=== PATIENT | male | born 1980 | race Caucasian/White ===

== ENCOUNTER 2020-10-17 10:15 | Emergency (ER) | payer SELFPAY ==
[2020-10-17] MEDS ORDERED: XYLOCAINE 1% HCL 20 ML MDV IJ ONE (10:16)
--- NOTE | 2020-10-17 10:17 | ERPHSYRPT ---
- History of Present Illness Time Seen by Provider: 10/17/20 10:17 Source: patient Exam Limitations: no limitations Physician History: This is a 40-year-old white male who is allergic to codeine but cannot take hydrocodone and presents with right cheek swelling and tenderness. It started approximately 4 days ago and has worsened. Patient has had a low-grade fever. Patient denies sore throat. Patient denies cough. Patient denies headache. He has no myalgias or arthralgias. He said no nausea vomiting or diarrhea. He does have some ear pain as well on the right side. Patient states that he has had this before in the past but does not recall what the call that. He was given antibiotics. Other times he has had the area opened and drained on its own. Patient recently moved here from out of town and does not have a local doctor. Timing/Duration: gradual onset, days (4) Severity: moderate ENT Location: facial (Right preauricular area) Prearrival Treatment: over the counter meds Associated Symptoms: ear pain (R), facial pain/swelling (Right preauricular area), swollen glands (Right preauricular and posterior auricular as well as right submandibular) Allergies/Adverse Reactions: codeine Allergy (Verified 10/17/20 10:30) hives Home Medications: Divalproex Sodium [Depakote ER] 250 mg PO BID 10/17/20 [History] Travel Risk - International Travel Have you traveled outside of the country in past 3 weeks: No - Coronavirus Screening Are you exhibiting any of the following symptoms?: No Close contact with a COVID-19 positive Pt in past 14-21 Days: No - Review of Systems Constitutional: Fever Eyes: No Symptoms Ears, Nose, & Throat: Ear Pain (Right), Other (Right preauricular region) Respiratory: No Symptoms Cardiac: No Symptoms Abdominal/Gastrointestinal: No Symptoms Genitourinary Symptoms: No Symptoms Musculoskeletal: No Symptoms Skin: No Symptoms Neurological: No Symptoms Psychological: No Symptoms Endocrine: No Symptoms Hematologic/Lymphatic: No Symptoms Immunological/Allergic: No Symptoms All Other Systems: Reviewed and Negative - Past Medical History Pertinent Past Medical History: Yes - Past Surgical History Past Surgical History: Yes - Nursing Vital Signs Nursing Vital Signs: Initial Vital Signs Temperature 99.3 F 10/17/20 10:20 Pulse Rate 92 H 10/17/20 10:20 Respiratory Rate 16 10/17/20 10:20 Blood Pressure 127/83 10/17/20 10:20 O2 Sat by Pulse Oximetry 98 10/17/20 10:20 Pain Scale Pain Intensity 6 - Physical Exam General Appearance: no apparent distress, alert, anxiety Eye Exam: bilateral eye: normal inspection, PERRL, EOMI Ear Exam: right ear: other (Tender preauricular and posterior ocular regions. There is swelling present as well. I do not see redness or cellulitis present. I do not see folliculitis), bilateral ear: auricle normal, canal normal, TM normal Nasal Exam: normal inspection Throat Exam: normal, pharynx normal Neck Exam: normal inspection, non-tender, supple Cardiovascular/Respiratory Exam: chest non-tender Abdominal Exam: non-tender Neurologic Exam: alert, oriented x 3, cooperative, water mechanic II-XII nml as tested, normal mood/affect, nml cerebellar function, nml station & gait, sensation nml Skin Exam: normal color, warm, dry SpO2 Interpretation: normal O2 Delivery: Room Air - Course Nursing assessment & vital signs reviewed: Yes Ordered Tests: Medication Summary Discontinued Medications Generic Name Dose Route Start Last Admin Trade Name Benyq PRN Reason Stop Dose Admin Ceftriaxone Sodium 1,000 mg 10/17/20 10:27 Rocephin 1000 Mg Inj IM 10/17/20 10:28 STAT ONE Ceftriaxone Sodium Confirm 10/17/20 10:31 Rocephin 1000 Mg Inj Administered 10/17/20 10:32 Dose 1,000 mg .ROUTE .STK-MED ONE - Progress Progress: unchanged Counseled pt/family regarding: diagnosis, need for follow-up - Departure Departure Disposition: Home Clinical Impression: Parotitis, acute Condition: Stable Critical Care Time: No Additional Instructions: Take medication as prescribed. Follow-up with the ENT specialist that we made arrangements for you to follow-up with. Add ibuprofen for pain control and fever control. Prescriptions: Amoxicillin/Potassium Clav [Augmentin 500-125 Tablet] 1 each PO TID 7 Days #21 tablet
[2020-10-17] MEDS ORDERED: Rocephin 1000 MG INJ IM ONE (10:27)
[2020-10-17] MEDS ORDERED: Rocephin 1000 MG INJ ONE (10:31)
[2020-10-17 11:10] VITALS: BP 106/74; PULSE 84; O2SAT 96
== END 2020-10-17 11:10 | disposition home or self-care (01) ==
LOC: ED 10:15
DX: K11.21 Acute sialoadenitis (principal)
CPT/HCPCS: 96372; 99283; J0696

== ENCOUNTER 2020-11-29 12:31 | Emergency (ER) | payer SELFPAY ==
[2020-11-29] MEDS ORDERED: MORPHINE SULFATE 4 MG INJ IV ONE (12:44)
[2020-11-29] MEDS ORDERED: Zofran 4 MG/2 ML VIAL IV ONE (12:44)
[2020-11-29] MEDS ORDERED: BABY ASPIRIN 81 MG CHEW PO ONE (12:44)
[2020-11-29] MEDS ORDERED: PROTONIX 40 MG IV IV ONE ×2 (12:45→12:50)
[2020-11-29] MEDS ORDERED: GI COCKTAIL 45 ML (Maalox/Lidocaine) PO ONE (12:46)
[2020-11-29] MEDS ORDERED: Zofran 4 MG/2 ML VIAL ONE (12:50)
[2020-11-29] MEDS ORDERED: BABY ASPIRIN 81 MG CHEW ONE (12:50)
[2020-11-29] MEDS ORDERED: MORPHINE SULFATE 4 MG INJ ONE (12:51)
[2020-11-29] MEDS ORDERED: MAALOX ES 30 ML UNIT DOSE ONE (12:52)
[2020-11-29] MEDS ORDERED: XYLOCAINE HCl Viscous ONE (12:52)
--- NOTE | 2020-11-29 13:00 | ERPHSYRPT ---
- History of Present Illness Time Seen by Provider: 11/29/20 12:33 Historian: patient Exam Limitations: no limitations Patient Subjective Stated Complaint: Patient stated he woke up this morning with chest pain. States pain is 8/10 with heavy pressure. Not radiating to anywhere other than chest. Triage Nursing Assessment: Patient presents to ER with chest pain and is short of breath. Ambulatory at this time. Skin pink warm and dry. vital signs within normal limits. Physician History: 40 years old male presented in the ER with chief complaint of sudden onset epigastric pain upon waking up from sleep almost an hour prior to arrival, constant, moderate to severe sharp in nature without radiation, associated with nausea but no vomiting. Denies any aggravating or relieving factors. Denies any fever or chills. Patient does not report any palpitations or shortness of breath. Does report having similar episode almost a month ago, was diagnosed with GERD but is not taking any medication for it. Timing/Duration: today, sudden, worse Activities at Onset: sleep Quality: sharpness Location: epigastric Chest Pain Radiation: no radiation Severity of Pain-Max: severe Severity of Pain-Current: severe Modifying Factors: Improves With: nothing Associated Symptoms: nausea, No hurts to breathe Prior Chest Pain/Cardiac Workup: non-cardiac Nitro Today/Relief: no nitro taken today Aspirin Treatment Today: no aspirin today Allergies/Adverse Reactions: codeine Allergy (Verified 10/17/20 10:30) hives Home Medications: No Reportable Medications [No Reported Medications] 11/29/20 [History] Hx Tetanus, Diphtheria Vaccination/Date Given: Yes Hx Influenza Vaccination/Date Given: Yes Travel Risk - International Travel Have you traveled outside of the country in past 3 weeks: No - Coronavirus Screening Are you exhibiting any of the following symptoms?: No Close contact with a COVID-19 positive Pt in past 14-21 Days: No - Vaccine Status Have you recieved a Covid-19 vaccination: No - Review of Systems Constitutional: No Symptoms Eyes: No Symptoms Ears, Nose, & Throat: No Symptoms Respiratory: No Symptoms Cardiac: Chest Pain Abdominal/Gastrointestinal: Abdominal Pain, Nausea Genitourinary Symptoms: No Symptoms Musculoskeletal: No Symptoms Skin: No Symptoms Neurological: No Symptoms Psychological: No Symptoms Endocrine: No Symptoms Hematologic/Lymphatic: No Symptoms Immunological/Allergic: No Symptoms - Past Medical History Pertinent Past Medical History: Yes Psycho-Social History: Depression Other Medical History: Bipolar - Past Surgical History Past Surgical History: Yes - Social History Smoking Status: Current every day smoker Drug Use: none Patient Lives Alone: No - Nursing Vital Signs Nursing Vital Signs: Initial Vital Signs Pulse Rate 80 11/29/20 12:32 Respiratory Rate 12 11/29/20 12:32 Blood Pressure 103/71 11/29/20 12:32 O2 Sat by Pulse Oximetry 99 11/29/20 12:32 Pain Scale Pain Intensity 0 - Physical Exam General Appearance: no apparent distress, alert, anxiety Eye Exam: PERRL/EOMI, eyes nml inspection Ears, Nose, Throat Exam: normal ENT inspection, pharynx normal Neck Exam: normal inspection, non-tender, supple, full range of motion Respiratory Exam: normal breath sounds, lungs clear Cardiovascular Exam: regular rate/rhythm, normal heart sounds, normal peripheral pulses Gastrointestinal/Abdomen Exam: soft, tenderness (Epigastric. Negative Green sign.), No guarding Back Exam: normal inspection, normal range of motion, No CVA tenderness Extremity Exam: normal inspection, normal range of motion Neurologic Exam: alert, oriented x 3, cooperative Skin Exam: normal color SpO2 Interpretation: normal SpO2: 99 O2 Delivery: Room Air - Course Nursing assessment & vital signs reviewed: Yes EKG Interpreted by Me: RATE (74), Sinus Rhythm, NORMAL AXIS, NORMAL INTERVALS, NORMAL QRS Ordered Tests: Active Orders 24 hr Category Date Time Status Operator Catalyst Concentration STAT Care 11/29/20 12:45 Completed EKG-ER Only STAT Care 11/29/20 12:44 Completed IV Insertion STAT Care 11/29/20 12:44 Completed CHEST 1 VIEW (PORTABLE) Stat Exams 11/29/20 12:44 Completed CBC W DIFF Stat Lab 11/29/20 12:40 Completed CMP Stat Lab 11/29/20 12:40 Completed D-DIMER QUANTITATIVE Stat Lab 11/29/20 12:40 Completed LIPASE Stat Lab 11/29/20 12:40 Completed NT PRO BNP Stat Lab 11/29/20 12:40 Completed TROPONIN Q3H Lab 11/29/20 12:40 Completed Urine Triage Profile Stat Lab 11/29/20 13:37 Completed Medication Summary Discontinued Medications Generic Name Dose Route Start Last Admin Trade Name Freq PRN Reason Stop Dose Admin Al Hydrox/Mg Hydrox/Simethicone Confirm 11/29/20 12:52 Maalox Es 30 Ml Unit Dose Administered 11/29/20 12:53 Dose 30 ml .ROUTE .STK-MED ONE Aspirin 324 mg 11/29/20 12:44 11/29/20 12:59 Baby Aspirin 81 Mg Chew PO 11/29/20 12:45 324 mg STAT ONE Administration Aspirin Confirm 11/29/20 12:50 Baby Aspirin 81 Mg Chew Administered 11/29/20 12:51 Dose 324 mg .ROUTE .STK-MED ONE Lidocaine HCl Confirm 11/29/20 12:52 Xylocaine Hcl Viscous * Administered 11/29/20 12:53 Dose 15 ml .ROUTE .STK-MED ONE Magnesium Hydroxide 45 ml 11/29/20 12:46 11/29/20 12:59 Gi Cocktail 45 Ml (Maalox/Lidocaine) PO 11/29/20 12:47 45 ml STAT ONE Administration Morphine Sulfate 4 mg 11/29/20 12:44 11/29/20 12:59 Morphine Sulfate 4 Mg Inj IV 11/29/20 12:45 4 mg STAT ONE Administration Morphine Sulfate Confirm 11/29/20 12:51 Morphine Sulfate 4 Mg Inj Administered 11/29/20 12:52 Dose 4 mg .ROUTE .STK-MED ONE Ondansetron HCl 4 mg 11/29/20 12:44 11/29/20 12:58 Zofran 4 Mg/2 Ml Vial IV 11/29/20 12:45 4 mg STAT ONE Administration Ondansetron HCl Confirm 11/29/20 12:50 Zofran 4 Mg/2 Ml Vial Administered 11/29/20 12:51 Dose 4 mg .ROUTE .STK-MED ONE Pantoprazole Sodium 40 mg 11/29/20 12:45 11/29/20 12:59 Protonix 40 Mg Iv IV 11/29/20 12:46 40 mg STAT ONE Administration Pantoprazole Sodium Confirm 11/29/20 12:50 Protonix 40 Mg Iv Administered 11/29/20 12:51 Dose 40 mg IV .STK-MED ONE Lab/Rad Data: Laboratory Result Diagrams 11/29/20 12:40 11/29/20 12:40 Laboratory Results 11/29/20 11/29/20 11/29/20 Range/Units 13:37 12:40 12:40 WBC (4.0-10.5) K/mm3 RBC (4.1-5.6) M/mm3 Hgb (12.5-18.0) gm/dl Hct (42-50) % MCV (78-100) fl MCH (26-32) pg MCHC (32-36) g/dl RDW (11.5-14.0) % Plt Count (150-450) K/mm3 MPV (7.5-11.0) fl Gran % (36.0-66.0) % Eos # (Auto) (0-0.5) Absolute Lymphs (auto) (1.0-4.6) Absolute Monos (auto) (0.0-1.3) Lymphocytes % (24.0-44.0) % Monocytes % (0.0-12.0) % Eosinophils % (0.00-5.0) % Basophils % (0.0-0.4) % Absolute Granulocytes (1.4-6.9) Basophils # (0-0.4) D-Dimer (215-500) ng/mL Sodium (137-145) mmol/L Potassium (3.5-5.1) mmol/L Chloride (98-107) mmol/L Carbon Dioxide (22-30) mmol/L Anion Gap (5-15) MEQ/L BUN (9-20) mg/dL Creatinine (0.66-1.25) mg/dL Estimated GFR ML/MIN Glucose (74-106) mg/dL Calcium (8.4-10.2) mg/dL Total Bilirubin (0.2-1.3) mg/dL AST (17-59) U/L ALT (0-50) U/L Alkaline Phosphatase (38-126) U/L Troponin I < 0.012 (0.000-0.034) ng/mL NT-Pro-B Natriuret Pep (0-450) pg/mL Serum Total Protein (6.3-8.2) g/dL Albumin (3.5-5.0) g/dL Lipase 60 (23-300) U/L Urine Opiates Level POSITIVE (NEGATIVE) Ur Methadone NEGATIVE (NEGATIVE) Urine Barbiturates NEGATIVE (NEGATIVE) Ur Phencyclidine (PCP) NEGATIVE (NEGATIVE) Urine Amphetamine NEGATIVE (NEGATIVE) U Benzodiazepine Level NEGATIVE (NEGATIVE) Urine Cocaine NEGATIVE (NEGATIVE) Urine Marijuana (THC) NEGATIVE (NEGATIVE) 11/29/20 11/29/20 11/29/20 Range/Units 12:40 12:40 12:40 WBC 12.3 H (4.0-10.5) K/mm3 RBC 4.87 (4.1-5.6) M/mm3 Hgb 14.2 (12.5-18.0) gm/dl Hct 43.8 (42-50) % MCV 89.9 (78-100) fl MCH 29.2 (26-32) pg MCHC 32.4 (32-36) g/dl RDW 15.3 H (11.5-14.0) % Plt Count 439 (150-450) K/mm3 MPV 8.6 (7.5-11.0) fl Gran % 50.0 (36.0-66.0) % Eos # (Auto) 0.23 (0-0.5) Absolute Lymphs (auto) 4.92 H (1.0-4.6) Absolute Monos (auto) 0.96 (0.0-1.3) Lymphocytes % 40.1 (24.0-44.0) % Monocytes % 7.8 (0.0-12.0) % Eosinophils % 1.9 (0.00-5.0) % Basophils % 0.2 (0.0-0.4) % Absolute Granulocytes 6.14 (1.4-6.9) Basophils # 0.02 (0-0.4) D-Dimer 453 (215-500) ng/mL Sodium 139 (137-145) mmol/L Potassium 4.1 (3.5-5.1) mmol/L Chloride 104 (98-107) mmol/L Carbon Dioxide 25 (22-30) mmol/L Anion Gap 13.5 (5-15) MEQ/L BUN 17 (9-20) mg/dL Creatinine 1.13 (0.66-1.25) mg/dL Estimated GFR > 60.0 ML/MIN Glucose 97 (74-106) mg/dL Calcium 9.1 (8.4-10.2) mg/dL Total Bilirubin 0.50 (0.2-1.3) mg/dL AST 21 (17-59) U/L ALT 16 (0-50) U/L Alkaline Phosphatase 73 (38-126) U/L Troponin I (0.000-0.034) ng/mL NT-Pro-B Natriuret Pep 23.7 (0-450) pg/mL Serum Total Protein 7.6 (6.3-8.2) g/dL Albumin 4.3 (3.5-5.0) g/dL Lipase (23-300) U/L Urine Opiates Level (NEGATIVE) Ur Methadone (NEGATIVE) Urine Barbiturates (NEGATIVE) Ur Phencyclidine (PCP) (NEGATIVE) Urine Amphetamine (NEGATIVE) U Benzodiazepine Level (NEGATIVE) Urine Cocaine (NEGATIVE) Urine Marijuana (THC) (NEGATIVE) - Progress Progress: improved Air Movement: good Progress Note: 11/29/20 40 years old is evaluated for epigastric/chest pain. Given symptomatic treatment with Protonix and GI cocktail/morphine, on reevaluation feeling better and chest pain is completely resolved. EKG did not show any acute ST elevation. Negative initial troponin and D-dimer. Chest x-ray negative for any acute cardiopulmonary findings. Recommended second troponin but patient does not want to stay and wants to leave AGAINST MEDICAL ADVICE. Patient states "my pain is resolved and I do not think I need to stay here anymore, will come back if it comes back". Patient is not confused or altered at all. I believe his symptoms are more of a secondary to GERD related but recommended outpatient cardiology follow-up. Discussed with patient about risk of leaving without full work-up and initial troponin can be falsely negative and risk of acute GA leading to which he understands but still wants to leave. Blood Culture(s) Obtained: No Antibiotics given: No Counseled pt/family regarding: lab results, diagnosis, need for follow-up, rad results - Departure Departure Disposition: AMA Clinical Impression: Atypical chest pain GERD with esophagitis Qualifiers: Esophagitis bleeding: without hemorrhage Qualified Code(s): K21.00 - Gastro-esophageal reflux disease with esophagitis, without bleeding Condition: Stable Critical Care Time: No Referrals: DOCTOR,NO FAMILY [Primary Care Provider] -
[2020-11-29 13:10] LABS: Absolute Neutrophil Ct (ANC) 6.14 (1.4-6.9); BASOPHIL % 0.2 % (0.0-0.4); Basophil (Absolute #) 0.02 (0-0.4); Eosinophil % 1.9 % (0.00-5.0); Eosinophil (Absolute #) 0.23 (0-0.5); Hematocrit 43.8 % (42-50); Hemoglobin 14.2 gm/dl (12.5-18.0); Lymphocyte (Absolute #) 4.92 (1.0-4.6); Lymphocytes % 40.1 % (24.0-44.0); Mean Cell Volume 89.9 fl (78-100); Mean Corpuscular Hemoglobin 29.2 pg (26-32); Mean Corpuscular Hgb Concent. 32.4 g/dl (32-36); Mean Platelet Volume 8.6 fl (7.5-11.0); Monocyte (Absolute #) 0.96 (0.0-1.3); Monocytes % 7.8 % (0.0-12.0); Platelet Count 439 K/mm3 (150-450); Red Blood Count 4.87 M/mm3 (4.1-5.6); Red Cell Distribution Width 15.3 % (11.5-14.0); White Blood Count 12.3 K/mm3 (4.0-10.5)
--- NOTE | 2020-11-29 13:26 | XRAY ---
Exam: AP upright portable chest film from 11/29/2020. Comparison: None. Indication: 40-year-old male with epigastric abdominal pain and chest pain. Findings: The patient is rotated mildly toward the right. The transverse heart size appears within normal limits. The galindo and mediastinal structures appear unremarkable. EKG leads are seen in place. The lungs are adequately inflated. No air space infiltrates, significant vascular congestion, pneumothorax, or pleural fluid is seen. No acute osseous process is seen. There is mild convexity of the upper thoracic spine toward the right centered at T4-T5. Impression: 1. No acute cardiopulmonary process is seen.
[2020-11-29 13:31] LABS: ALBUMIN 4.3 g/dL (3.5-5.0); ALKALINE PHOSPHATASE 73 U/L (38-126); ANION GAP 13.5 MEQ/L (5-15); BLOOD UREA NITROGEN 17 mg/dL (9-20); CHLORIDE 104 mmol/L (98-107); Calcium 9.1 mg/dL (8.4-10.2); Carbon Dioxide 25 mmol/L (22-30); Creatinine 1 1.13 mg/dL (0.66-1.25); EST GLOMERULAR FILTRATION RATE > 60.0 ML/MIN; Glucose 97 mg/dL (74-106); NT PRO BNP 23.7 pg/mL (0-450); Potassium 4.1 mmol/L (3.5-5.1); SGOT/AST 21 U/L (17-59); SGPT/ALT 16 U/L (0-50); SODIUM 139 mmol/L (137-145); Total Protein 7.6 g/dL (6.3-8.2)
[2020-11-29 13:59] LABS: Amphetamine,Urine NEGATIVE (NEGATIVE); Barbiturate,Urine NEGATIVE (NEGATIVE); Benzodiazepine,Urine NEGATIVE (NEGATIVE); Cocaine,Urine NEGATIVE (NEGATIVE); Methadone,Urine NEGATIVE (NEGATIVE); Opiate,Urine POSITIVE (NEGATIVE); PCP,Urine NEGATIVE (NEGATIVE); THC,Urine NEGATIVE (NEGATIVE)
[2020-11-29 15:19] VITALS: BP 96/62; PULSE 60; O2SAT 99
== END 2020-11-29 15:29 | disposition left against medical advice (07) ==
LOC: ED 12:31
DX: R07.89 Other chest pain (principal); K21.00 Gastro-esophageal reflux disease with esophagitis, without bleeding
CPT/HCPCS: 36000; 36415; 71045; 80053; 80307; 83690; 83880; 84484; 85025; 85379; 93005; 93041; 96374; 96375; 99284; J2270; J2405; A9270-GY

== ENCOUNTER 2021-07-24 08:34 | Emergency (ER) | payer MEDICAID ==
[2021-07-24] MEDS ORDERED: TORAdol 30 mg Injection ONE (08:53)
[2021-07-24] MEDS ORDERED: Norflex 60 MG/2 ML ONE (08:53)
--- NOTE | 2021-07-24 08:53 | ERPHSYRPT ---
- History of Present Illness Time Seen by Provider: 07/24/21 08:44 Source: patient Exam Limitations: no limitations Physician History: 40 years old male presented in the ER with chief complaint of right low back pain after he woke up this morning after a night long sleep on a recliner in a certain position which probably caused his pain per patient. Pain is moderate intensity dull to sharp, nonradiating, more with movements a certain position and better with being still. No abdominal pain nausea vomiting or urinary complaints. No numbness tingling weakness of lower extremities, no loss of bowel or bladder control. Denies any midline back pain. Also reports having gradually worsening hearing loss in right ear and this morning hard time hearing anything because of clogged up with wax. Timing/Duration: today, sudden, improved Quality: dull, sharp Back Pain Location: paraspinous muscles Severity of Pain-Max: moderate Severity of Pain-Current: moderate Associated Symptoms: denies symptoms Previous symptoms: no prior history Allergies/Adverse Reactions: codeine Allergy (Verified 07/24/21 08:49) hives Hx Tetanus, Diphtheria Vaccination/Date Given: Yes Hx Influenza Vaccination/Date Given: Yes Travel Risk - Vaccine Status Have you recieved a Covid-19 vaccination: No - Review of Systems Constitutional: No Symptoms Eyes: No Symptoms Ears, Nose, & Throat: Hearing Changes Respiratory: No Symptoms Cardiac: No Symptoms Abdominal/Gastrointestinal: No Symptoms Genitourinary Symptoms: No Symptoms Musculoskeletal: Back Pain Skin: No Symptoms Neurological: No Symptoms Endocrine: No Symptoms Hematologic/Lymphatic: No Symptoms - Past Medical History Pertinent Past Medical History: Yes Psycho-Social History: Depression Other Medical History: Bipolar - Past Surgical History Past Surgical History: No - Social History Smoking Status: Current every day smoker Drug Use: none Patient Lives Alone: No - Nursing Vital Signs Nursing Vital Signs: Initial Vital Signs Temperature 96.8 F 07/24/21 08:36 Pulse Rate 91 H 07/24/21 08:36 Blood Pressure 103/73 07/24/21 08:36 O2 Sat by Pulse Oximetry 96 07/24/21 08:36 Pain Scale Pain Intensity [Posterior 5 Distal Back] Pain Intensity 4 - Physical Exam General Appearance: no apparent distress, alert Eye Exam: PERRL/EOMI, eyes nml inspection Ears, Nose, Throat Exam: pharynx normal, other (TM not visible, canal follow-up wax on the right. Left TM normal.) Neck Exam: normal inspection, non-tender, supple, full range of motion Respiratory Exam: normal breath sounds, lungs clear Cardiovascular Exam: regular rate/rhythm, normal heart sounds Gastrointestinal Exam: soft, normal bowel sounds, No tenderness Back Exam: normal inspection, normal range of motion, muscle spasm (Right sacroiliac area and some paravertebral but no vertebral tenderness at all), No CVA tenderness, No vertebral tenderness, No decreased range of motion Extremity Exam: normal inspection, normal range of motion, pelvis stable Neurologic Exam: alert, oriented x 3, cooperative, gold beater II-XII nml as tested Skin Exam: normal color SpO2 Interpretation: normal SpO2: 96 O2 Delivery: Room Air Ordered Tests: Active Orders 24 hr Category Date Time Status UA W/RFX UR CULTURE Stat Lab 07/24/21 09:06 Completed Medication Summary Discontinued Medications Generic Name Dose Route Start Last Admin Trade Name Freq PRN Reason Stop Dose Admin Ketorolac Tromethamine 30 mg 07/24/21 08:45 07/24/21 08:54 Ketorolac Tromethamine 30 Mg/Ml Inj IM 07/24/21 08:46 30 mg STAT ONE Administration Ketorolac Tromethamine Confirm 07/24/21 08:53 Ketorolac Tromethamine 30 Mg/Ml Inj Administered 07/24/21 08:54 Dose 30 mg .ROUTE .STK-MED ONE Orphenadrine Citrate 60 mg 07/24/21 08:45 07/24/21 08:54 Orphenadrine Citrate 60 Mg/2 Ml Amp IM 07/24/21 08:46 60 mg STAT ONE Administration Orphenadrine Citrate Confirm 07/24/21 08:53 Orphenadrine Citrate 60 Mg/2 Ml Amp Administered 07/24/21 08:54 Dose 60 mg .ROUTE .STK-MED ONE Lab/Rad Data: Laboratory Results 07/24/21 Range/Units 09:06 Urine Color YELLOW (YELLOW) Urine Appearance CLEAR (CLEAR) Urine pH 5.0 (5-6) Ur Specific Bradford 1.015 (1.005-1.025) Urine Protein NEGATIVE (Negative) Urine Ketones NEGATIVE (NEGATIVE) Urine Blood NEGATIVE (0-5) Sahil/ul Urine Nitrite NEGATIVE (NEGATIVE) Urine Bilirubin NEGATIVE (NEGATIVE) Urine Urobilinogen NEGATIVE (0-1) mg/dL Ur Leukocyte Esterase NEGATIVE (NEGATIVE) Urine WBC (Auto) 3-5 (0-5) /HPF Urine RBC (Auto) 0-2 (0-2) /HPF U Hyaline Cast (Auto) 0-2 (0-2) /LPF U Epithel Cells (Auto) RARE (FEW) /HPF Urine Bacteria (Auto) FEW (NEGATIVE) /HPF Urine Mucus (Auto) SLIGHT (NEGATIVE) /HPF Urine Culture Reflexed NO (NO) Urine Glucose NEGATIVE (NEGATIVE) mg/dL - Progress Progress: improved, re-examined Progress Note: 07/24/21 10:37 40 years old is evaluated for right low back pain. Patient does not have any midline tenderness at all. More of a muscle strain on the low back because of sleeping and certain position probably. Given Toradol and Norflex, on reevaluation feeling improvement and is pain-free. I will give him NSAIDs and muscle relaxants to go home. Left ear is irrigated and impacted wax is removed, improved hearing. It was done by RN. Recommended outpatient follow-up. Discussed signs symptoms of worsening needing return to ER which he seems understanding. Counseled pt/family regarding: lab results, diagnosis, need for follow-up - Departure Departure Disposition: Home Clinical Impression: Low back strain Qualifiers: Encounter type: initial encounter Qualified Code(s): S39.012A - Strain of muscle, fascia and tendon of lower back, initial encounter Impacted ear wax Qualifiers: Laterality: right Qualified Code(s): H61.21 - Impacted cerumen, right ear Condition: Stable Critical Care Time: No Referrals: DOCTOR,NO FAMILY [Primary Care Provider] - Follow up/PCP as directed ANNETTE DESAI MD [ACTIVE STAFF] - Follow Up with PCP/3 days Instructions: Low Back Pain (DC) Additional Instructions: Do not use Q-tips. Take Tylenol/ibuprofen as needed. Follow-up with primary care for reevaluation. Return to ER for intractable low back pain, numbness tingling weakness of lower extremities/loss of bowel or bladder control. Prescriptions: Ibuprofen 600 mg PO Q6HPRN PRN 10 Days #20 tablet PRN Reason: Pain Cyclobenzaprine HCl 10 mg [Flexeril 10 MG] 10 mg PO TID #20 tablet
[2021-07-24] MEDS: TORAdol 30 mg Injection IM ONE (08:54)
[2021-07-24] MEDS: Norflex 60 MG/2 ML IM ONE (08:54)
[2021-07-24 09:43] LABS: Appearance CLEAR (CLEAR); Bilirubin NEGATIVE (NEGATIVE); Blood NEGATIVE Ery/ul (0-5); Glucose NEGATIVE (NEGATIVE); Hyaline Casts 0-2 /LPF (0-2); Ketones NEGATIVE (NEGATIVE); Leukocyte Esterase NEGATIVE (NEGATIVE); Mucus SLIGHT /HPF (NEGATIVE); Nitrite NEGATIVE (NEGATIVE); Protein,Urine Dip NEGATIVE (Negative); Specific Gravity 1.015 (1.005-1.025); Urobilinogen NEGATIVE mg/dL (0-1)
[2021-07-24 09:44] LABS: Bacteria FEW /HPF (NEGATIVE); Epithelial Cells RARE /HPF (FEW); RBC 0-2 /HPF (0-2)
[2021-07-24 10:08] VITALS: BP 102/66; PULSE 74
[2021-07-24 10:13] VITALS: O2SAT 96
== END 2021-07-24 10:51 | disposition home or self-care (01) ==
LOC: ED 08:34
DX: S39.012A Strain of muscle, fascia and tendon of lower back, initial encounter (principal); X50.1XXA Overexertion from prolonged static or awkward postures, initial encounter; Y93.84 Activity, sleeping; Y92.009 Unspecified place in unspecified non-institutional (private) residence as the place of occurrence of the external cause; Z72.0 Tobacco use; H61.21 Impacted cerumen, right ear
CPT/HCPCS: 69210; 81001; 96372; 99284; J1885; J2360

== ENCOUNTER 2021-08-06 08:12 | Emergency (ER) | payer MEDICAID | END 2021-08-06 08:30 | disposition left against medical advice (07) | LOC: ED 08:12 | DX: Z53.21 Procedure and treatment not carried out due to patient leaving prior to being seen by health care provider (principal) ==

== ENCOUNTER 2022-01-17 08:01 | Emergency (ER) | payer OTHER ==
[2022-01-17 08:34] LABS: Absolute Neutrophil Ct (ANC) 6.85 x10^3/uL (1.4-6.9); Basophil (Absolute #) 0.06 x10^3/uL (0-0.4); Eosinophil (Absolute #) 0.23 x10^3/uL (0-0.5); Hematocrit 41.7 % (42-50); Hemoglobin 13.4 g/dL (12.5-18.0); Lymphocyte (Absolute #) 3.86 x10^3/uL (1.0-4.6); Lymphocytes % 33.1 % (24.0-44.0); Mean Cell Volume 84.2 fL (78-100); Mean Corpuscular Hemoglobin 27.1 pg (26-32); Mean Corpuscular Hgb Concent. 32.1 g/dL (32-36); Mean Platelet Volume 8.2 fL (7.5-11.0); Monocyte (Absolute #) 0.61 x10^3/uL (0.0-1.3); Monocytes % 5.2 % (0.0-12.0); Neutrophil % 58.9 % (36.0-66.0); Platelet Count 456 x10^3/uL (150-450); Red Blood Count 4.95 x10^6/uL (4.1-5.6); Red Cell Distribution Width 16.1 % (11.5-14.0); White Blood Count 11.7 x10^3/uL (4.0-10.5)
--- NOTE | 2022-01-17 08:44 | ERPHSYRPT ---
- History of Present Illness Source: patient Exam Limitations: other (Poor historian) Patient Subjective Stated Complaint: pt here for swelling to lower legs for a few months now, was seen by family doc and placed on lasix which he states is not helping Triage Nursing Assessment: pt alert, resp easy at rest, labored with movement he states is normal for him . face mask in place. has plus 2 edema from kness to toes, Physician History: 41 yo wm w B LE edema x 2-3 months. Pt was placed on Lasix by [facility] [employer] but missed last appointment. He denies PND/orthopnea/chest pain and states that he has mild chronic dyspnea due to tobacco abuse. Method of Injury: unknown Occurred: other (2-3 months) Quality: aching Severity of Pain-Max: mild Severity of Pain-Current: mild Lower Extremities Pain: hip: left, leg: bilateral Modifying Factors: Improves With: nothing Allergies/Adverse Reactions: codeine Allergy (Verified 01/17/22 08:27) hives Home Medications: Furosemide [Lasix] 1 ea DAILY 01/17/22 [History] Potassium Citrate [Potassium Citrate ER] 1 ea DAILY 01/17/22 [History] glipiZIDE [Glipizide] 1 ea DAILY 01/17/22 [History] Hx Tetanus, Diphtheria Vaccination/Date Given: No Hx Influenza Vaccination/Date Given: No Hx Pneumococcal Vaccination/Date Given: No Immunizations Up to Date: Yes Travel Risk - International Travel Have you traveled outside of the country in past 3 weeks: No - Coronavirus Screening Are you exhibiting any of the following symptoms?: No Close contact with a COVID-19 positive Pt in past 14-21 Days: No - Vaccine Status Have you recieved a Covid-19 vaccination: No - Review of Systems Constitutional: No Symptoms Eyes: No Symptoms Ears, Nose, & Throat: No Symptoms Respiratory: No Symptoms, Dyspnea on Exertion (HSIEH) (Mild) Cardiac: No Symptoms, Edema Abdominal/Gastrointestinal: No Symptoms Genitourinary Symptoms: No Symptoms Musculoskeletal: No Symptoms, Myalgias Skin: No Symptoms Neurological: No Symptoms Psychological: No Symptoms Endocrine: No Symptoms Hematologic/Lymphatic: No Symptoms Immunological/Allergic: No Symptoms - Past Medical History Pertinent Past Medical History: Yes Psycho-Social History: Depression Other Medical History: Bipolar - Past Surgical History Past Surgical History: No - Social History Smoking Status: Current every day smoker Exposure to second hand smoke: Yes Drug Use: none Patient Lives Alone: Yes Significant Family History: no pertinent family hx - Nursing Vital Signs Nursing Vital Signs: Initial Vital Signs Temperature 97.6 F 01/17/22 08:18 Pulse Rate 103 H 01/17/22 08:18 Respiratory Rate 18 01/17/22 08:18 Blood Pressure 118/76 01/17/22 08:18 O2 Sat by Pulse Oximetry 97 01/17/22 08:18 Pain Scale Pain Intensity 5 Tachy - Physical Exam General Appearance: no apparent distress Eyes, Ears, Nose, Throat Exam: normal ENT inspection, pharynx normal, moist mucous membranes Neck Exam: normal inspection, non-tender, supple, full range of motion, No Brudzinski, No Kernig's, No meningismus, No carotid bruit Cardiovascular/Respiratory Exam: normal breath sounds, heart sounds normal, no JVD, tachycardia (Mild) Gastrointestinal/Abdominal Exam: non-tender, soft, No no organomegaly Back Exam: normal inspection, normal range of motion, No CVA tenderness Hips Exam: bilateral: non-tender, normal inspection Legs Exam: bilateral leg: swelling (2+ B LE edema) Knees Exam: bilateral knee: non-tender, normal inspection, normal range of motion, no evidence of injury Ankle Exam: bilateral ankle: swelling Foot Exam: bilateral foot: swelling DTR - Lower Extremities Exam: knee (R): 2+, knee (L): 2+ Neuro/Tendon Exam: normal sensation, normal motor functions, normal tendon func tions, responds to pain, no evidence tendon injury, No motor deficit, No sensory deficit Mental Status Exam: alert, oriented x 3, cooperative Skin Exam: normal color, warm, dry, No rash SpO2 Interpretation: normal SpO2: 97 O2 Delivery: Room Air - Course Nursing assessment & vital signs reviewed: Yes EKG Interpreted by Me: RATE (NSR/R84/Normal QT-QTc/Tall R wave V2/Nonspecific ST-Twave changes) - Radiology Exams Chest X-ray Interpretation: Discussed w/ radiologist (CXR neg per Rad) - Radiology Ultrasound Exam Venous Lower Extremity Ultrasound: discussed w/radiologist (B LE venous doppler neg for DVT) Ordered Tests: Active Orders 24 hr Category Date Time Status EKG-ER Only STAT Care 01/17/22 08:14 Completed CHEST 1 VIEW (PORTABLE) Stat Exams 01/17/22 08:13 Completed VENOUS BILATERAL EXTREMITY [US] Stat Exams 01/17/22 08:12 Completed CBC W DIFF Stat Lab 01/17/22 08:25 Completed CMP Stat Lab 01/17/22 08:25 Completed NT PRO BNP Stat Lab 01/17/22 08:25 Completed PROTIME WITH INR Stat Lab 01/17/22 08:25 Completed PTT Stat Lab 01/17/22 08:25 Completed TROPONIN Q3H Lab 01/17/22 08:25 Completed Medication Summary Discontinued Medications Generic Name Dose Route Start Last Admin Trade Name Freq PRN Reason Stop Dose Admin Furosemide 20 mg 01/18/22 10:04 01/17/22 10:15 Furosemide 20 Mg/Vial IV 01/18/22 10:05 20 mg STAT ONE Administration Furosemide Confirm 01/17/22 10:10 Furosemide 40 Mg/4 Ml Vial Administered 01/17/22 10:11 Dose 40 mg .ROUTE .STK-MED ONE Lab/Rad Data: Laboratory Result Diagrams 01/17/22 08:25 01/17/22 08:25 Laboratory Results 01/17/22 01/17/22 01/17/22 Range/Units 08:25 08:25 08:25 WBC (4.0-10.5) x10^3/uL RBC (4.1-5.6) x10^6/uL Hgb (12.5-18.0) g/dL Hct (42-50) % MCV (78-100) fL MCH (26-32) pg MCHC (32-36) g/dL RDW (11.5-14.0) % Plt Count (150-450) x10^3/uL MPV (7.5-11.0) fL Gran % (36.0-66.0) % Immature Gran % (Auto) (0.00-0.4) % Nucleat RBC Rel Count (0.00-0.1) % Eos # (Auto) (0-0.5) x10^3/uL Immature Gran # (Auto) (0.00-0.03) x10^3u/L Absolute Lymphs (auto) (1.0-4.6) x10^3/uL Absolute Monos (auto) (0.0-1.3) x10^3/uL Absolute Nucleated RBC (0.00-0.01) x10^3u/L Lymphocytes % (24.0-44.0) % Monocytes % (0.0-12.0) % Eosinophils % (0.00-5.0) % Basophils % (0.0-0.4) % Absolute Granulocytes (1.4-6.9) x10^3/uL Basophils # (0-0.4) x10^3/uL PT 10.2 (9.4-12.5) SECONDS INR 0.96 (0.8-3.0) APTT 28.8 (25.1-36.5) SECONDS Sodium 142 (137-145) mmol/L Potassium 4.1 (3.5-5.1) mmol/L Chloride 107 (98-107) mmol/L Carbon Dioxide 21 L (22-30) mmol/L Anion Gap 18.5 H (5-15) MEQ/L BUN 13 (9-20) mg/dL Creatinine 1.22 (0.66-1.25) mg/dL Estimated GFR > 60.0 ML/MIN Glucose 127 H (74-106) mg/dL Calcium 8.9 (8.4-10.2) mg/dL Total Bilirubin 0.40 (0.2-1.3) mg/dL AST 22 (17-59) U/L ALT 17 (0-50) U/L Alkaline Phosphatase 77 (38-126) U/L Troponin I < 0.012 (0.000-0.034) ng/mL NT-Pro-B Natriuret Pep 18.1 (0-450) pg/mL Serum Total Protein 7.7 (6.3-8.2) g/dL Albumin 4.2 (3.5-5.0) g/dL 01/17/22 Range/Units 08:25 WBC 11.7 H (4.0-10.5) x10^3/uL RBC 4.95 (4.1-5.6) x10^6/uL Hgb 13.4 (12.5-18.0) g/dL Hct 41.7 L (42-50) % MCV 84.2 (78-100) fL MCH 27.1 (26-32) pg MCHC 32.1 (32-36) g/dL RDW 16.1 H (11.5-14.0) % Plt Count 456 H (150-450) x10^3/uL MPV 8.2 (7.5-11.0) fL Gran % 58.9 (36.0-66.0) % Immature Gran % (Auto) 0.3 (0.00-0.4) % Nucleat RBC Rel Count 0.0 (0.00-0.1) % Eos # (Auto) 0.23 (0-0.5) x10^3/uL Immature Gran # (Auto) 0.04 H (0.00-0.03) x10^3u/L Absolute Lymphs (auto) 3.86 (1.0-4.6) x10^3/uL Absolute Monos (auto) 0.61 (0.0-1.3) x10^3/uL Absolute Nucleated RBC 0.00 (0.00-0.01) x10^3u/L Lymphocytes % 33.1 (24.0-44.0) % Monocytes % 5.2 (0.0-12.0) % Eosinophils % 2.0 (0.00-5.0) % Basophils % 0.5 (0.0-0.4) % Absolute Granulocytes 6.85 (1.4-6.9) x10^3/uL Basophils # 0.06 (0-0.4) x10^3/uL PT (9.4-12.5) SECONDS INR (0.8-3.0) APTT (25.1-36.5) SECONDS Sodium (137-145) mmol/L Potassium (3.5-5.1) mmol/L Chloride (98-107) mmol/L Carbon Dioxide (22-30) mmol/L Anion Gap (5-15) MEQ/L BUN (9-20) mg/dL Creatinine (0.66-1.25) mg/dL Estimated GFR ML/MIN Glucose (74-106) mg/dL Calcium (8.4-10.2) mg/dL Total Bilirubin (0.2-1.3) mg/dL AST (17-59) U/L ALT (0-50) U/L Alkaline Phosphatase (38-126) U/L Troponin I (0.000-0.034) ng/mL NT-Pro-B Natriuret Pep (0-450) pg/mL Serum Total Protein (6.3-8.2) g/dL Albumin (3.5-5.0) g/dL - Progress Progress Note: 01/17/22 21:18 20mg IV Lasix before discharge Counseled pt/family regarding: lab results, diagnosis, need for follow-up, rad results - Departure Departure Disposition: Home Clinical Impression: Edema Condition: Stable Critical Care Time: No Referrals: LYLE GUIDRY NP [Primary Care Provider] - Follow up/PCP as directed Instructions: Dependent Edema (DC) Additional Instructions: Increase Lasix to 40mg daily Follow up with your [facility] in 1-2 days Elevate legs Get thigh high Khurram Hose Return to ER for increased swelling/redness of legs/shortness of breath/Chest pain Prescriptions: Furosemide 40 mg [Lasix 40 MG] 40 mg PO DAILY #30 tablet
[2022-01-17 08:50] LABS: INR 0.96 (0.8-3.0); PROTIME 10.2 SECONDS (9.4-12.5); PTT 28.8 SECONDS (25.1-36.5)
[2022-01-17 08:56] LABS: ALBUMIN 4.2 g/dL (3.5-5.0); ALKALINE PHOSPHATASE 77 U/L (38-126); ANION GAP 18.5 MEQ/L (5-15); BLOOD UREA NITROGEN 13 mg/dL (9-20); CHLORIDE 107 mmol/L (98-107); Calcium 8.9 mg/dL (8.4-10.2); Carbon Dioxide 21 mmol/L (22-30); Creatinine 1 1.22 mg/dL (0.66-1.25); EST GLOMERULAR FILTRATION RATE > 60.0 ML/MIN; Glucose 127 mg/dL (74-106); NT PRO BNP 18.1 pg/mL (0-450); Potassium 4.1 mmol/L (3.5-5.1); SGOT/AST 22 U/L (17-59); SGPT/ALT 17 U/L (0-50); SODIUM 142 mmol/L (137-145); Total Protein 7.7 g/dL (6.3-8.2)
--- NOTE | 2022-01-17 09:04 | XRAY ---
Indication: Bilateral lower extremity edema. Comparison: November 29, 2020. Portable chest inflated and clear. Heart is not enlarged for AP portable technique. Bony thorax intact again with mild dextroscoliosis. Impression: Continue nonacute chest.
[2022-01-17 09:08] VITALS: BP 105/73; PULSE 89
--- NOTE | 2022-01-17 09:19 | XRAY ---
Indication: Bilateral edema pain. Two-dimensional sonogram and color Doppler imaging of the major venous vessels of the left and right leg performed. Comparison: None No thrombus seen in the examined deep venous vessels of the left and right leg including greater saphenous vein. Veins demonstrate normal compressibility. Venous waveforms are normal with and without augmentation. Impression: Left and right legs negative for DVT.
[2022-01-17 10:06] VITALS: O2SAT 97
[2022-01-17] MEDS ORDERED: Lasix 40 MG/4 ML ONE (10:10)
[2022-01-18] MEDS ORDERED: Lasix 20 MG/2 ML IV ONE (10:04)
== END 2022-01-17 10:50 | disposition home or self-care (01) ==
LOC: ED 08:01
DX: R60.9 Edema, unspecified (principal); Z72.0 Tobacco use; Z79.84 Long term (current) use of oral hypoglycemic drugs; Z79.899 Other long term (current) drug therapy; Z28.310 Unvaccinated for COVID-19
CPT/HCPCS: 36000; 36415; 71045; 80053; 83880; 84484; 85025; 85610; 85730; 93005; 93970; 96374; 99284; J1940

== ENCOUNTER 2022-04-06 18:21 | Emergency (ER) | payer OTHER ==
--- NOTE | 2022-04-06 19:29 | ERPHSYRPT ---
- History of Present Illness Time Seen by Provider: 04/06/22 19:29 Source: patient Exam Limitations: no limitations Physician History: This a 41-year-old white male has a history of GERD and presents with approximately 1 day history of worsening left lower incisor pain. Patient took ibuprofen earlier this morning and later in the day took Tylenol. This did not help his pain. Timing/Duration: abrupt onset, this morning Severity: mild (To moderate) ENT Location: dental Prearrival Treatment: over the counter meds Modifying Factors: Improves With: nothing Associated Symptoms: tooth pain (Left lower incisor) Allergies/Adverse Reactions: codeine Allergy (Verified 04/06/22 19:41) hives Home Medications: Omeprazole 20 mg PO DAILY 04/06/22 [History] Hx Tetanus, Diphtheria Vaccination/Date Given: No Hx Influenza Vaccination/Date Given: No Hx Pneumococcal Vaccination/Date Given: No Travel Risk - International Travel Have you traveled outside of the country in past 3 weeks: No - Coronavirus Screening Are you exhibiting any of the following symptoms?: No Close contact with a COVID-19 positive Pt in past 14-21 Days: No - Vaccine Status Have you recieved a Covid-19 vaccination: No - Review of Systems Constitutional: No Symptoms Eyes: No Symptoms Ears, Nose, & Throat: Other (Left lower incisor pain) Respiratory: No Symptoms Cardiac: No Symptoms Abdominal/Gastrointestinal: No Symptoms Genitourinary Symptoms: No Symptoms Musculoskeletal: No Symptoms Skin: No Symptoms Neurological: No Symptoms Psychological: No Symptoms Endocrine: No Symptoms Hematologic/Lymphatic: No Symptoms Immunological/Allergic: No Symptoms - Past Medical History Pertinent Past Medical History: Yes Psycho-Social History: Depression Other Medical History: Bipolar - Past Surgical History Past Surgical History: No - Social History Smoking Status: Current every day smoker Exposure to second hand smoke: Yes Drug Use: none Patient Lives Alone: Yes Significant Family History: no pertinent family hx - Nursing Vital Signs Nursing Vital Signs: Initial Vital Signs Temperature 97.8 F 04/06/22 19:34 Pulse Rate 82 04/06/22 19:34 Respiratory Rate 20 04/06/22 19:34 Blood Pressure 122/86 04/06/22 19:34 O2 Sat by Pulse Oximetry 100 04/06/22 19:34 Pain Scale Pain Intensity 9 - Physical Exam General Appearance: no apparent distress, alert, anxiety Eye Exam: bilateral eye: normal inspection, PERRL, EOMI Ear Exam: bilateral ear: auricle normal Nasal Exam: normal inspection Throat Exam: dental tenderness (Generalized poor dentition with point of maximal tenderness at the dentalgingival border of the left lower incisor) Neck Exam: normal inspection, non-tender, supple, full range of motion Cardiovascular/Respiratory Exam: chest non-tender, no respiratory distress Abdominal Exam: non-tender Neurologic Exam: alert, oriented x 3, cooperative, pet stylist II-XII nml as tested, normal mood/affect, nml cerebellar function, nml station & gait, sensation nml Skin Exam: normal color, warm, dry SpO2 Interpretation: normal O2 Delivery: Room Air - Course Nursing assessment & vital signs reviewed: Yes Ordered Tests: Medication Summary Discontinued Medications Generic Name Dose Route Start Last Admin Trade Name Benyq PRN Reason Stop Dose Admin Amoxicillin 500 mg 04/06/22 20:14 04/06/22 20:16 Amoxicillin Trihydrate 500 Mg Capsule PO 04/06/22 20:15 500 mg STAT ONE Administration Amoxicillin Confirm 04/06/22 20:16 Amoxicillin Trihydrate 500 Mg Capsule Administered 04/06/22 20:17 Dose 500 mg .ROUTE .STK-MED ONE Ibuprofen 600 mg 04/06/22 19:55 04/06/22 20:12 Ibuprofen 600 Mg Tablet PO 04/06/22 19:56 600 mg STAT ONE Administration Ibuprofen Confirm 04/06/22 20:11 Ibuprofen 600 Mg Tablet Administered 04/06/22 20:12 Dose 600 mg .ROUTE .STK-MED ONE Oxycodone/Acetaminophen 1 tab 04/06/22 19:55 04/06/22 20:12 Oxycodone Hcl/Apap 5 Mg/325 Mg Tablet PO 04/06/22 19:56 1 tab STAT STA Administration Oxycodone/Acetaminophen 2 tab 04/06/22 19:56 04/06/22 20:13 Oxycodone Hcl/Apap 5 Mg/325 Mg Tablet PO 04/06/22 19:57 2 tab SENT HOME W/ PATIENT STA Administration Oxycodone/Acetaminophen Confirm 04/06/22 20:11 Oxycodone Hcl/Apap 5 Mg/325 Mg Tablet Administered 04/06/22 20:12 Dose 6 tab .ROUTE .STK-MED ONE - Progress Progress: unchanged Counseled pt/family regarding: diagnosis, need for follow-up - Departure Departure Disposition: Home Clinical Impression: Pain, dental, Pain due to dental caries Condition: Stable Critical Care Time: No Referrals: LYLE GUIDRY [employer] COUNSEL[employer] [Primary Care Provider] - Follow up/PCP as directed Additional Instructions: Add ibuprofen 600 mg orally with food 3 times a day for the next 5 days. Call your dentist next week and make arrangements for definitive care and a follow-up appointment. Take your antibiotics as prescribed. Prescriptions: Amoxicillin 500 mg Cap [Amoxil 500 mg] 500 mg PO TID #30 cap
[2022-04-06 19:41] VITALS: BP 122/86; PULSE 82; O2SAT 100
[2022-04-06] MEDS ORDERED: PERCOCET TABLET 5/325MG PO STA ×2 (19:55→19:56)
[2022-04-06] MEDS ORDERED: MOTRIN 600 MG PO ONE (19:55)
[2022-04-06] MEDS ORDERED: MOTRIN 600 MG ONE (20:11)
[2022-04-06] MEDS ORDERED: PERCOCET TABLET 5/325MG ONE (20:11)
[2022-04-06] MEDS ORDERED: AMOXIL 500 MG PO ONE (20:14)
[2022-04-06] MEDS ORDERED: AMOXIL 500 MG ONE (20:16)
== END 2022-04-06 20:49 | disposition home or self-care (01) ==
LOC: ED 18:21
DX: K02.9 Dental caries, unspecified (principal); K08.89 Other specified disorders of teeth and supporting structures; Z72.0 Tobacco use; Z28.310 Unvaccinated for COVID-19
CPT/HCPCS: 99282; A9270-GY

== ENCOUNTER 2022-11-12 11:28 | Emergency (ER) | payer OTHER ==
--- NOTE | 2022-11-12 11:52 | ERPHSYRPT ---
- History of Present Illness Source: patient, EMS Exam Limitations: no limitations Patient Subjective Stated Complaint: Pt states I was told I was pre diabetic and they just increased my glipizide from 5 to 10. I took two pills this morning." Triage Nursing Assessment: Pt presented alert and oriented X 3, PT brought the script bottle in and it advised that he needed to take one pill two times a day. Pt resting comfortably on the bed. Physician History: 42 yo wm who took 10mg of Glipizide this morning instead of 5mg BID became hypoglycemic. Pt developed blurry vision,lethargy, and diaphoresis. Blood glucose in the 40's when EMS arrived. IV access started on site and D10W started which resolved. Pt arrived alert and oriented x3 w glucose in 180's. He has no focal weakness. Timing/Duration: today Severity: mild Modifying Factors: Improves With: other (IV Dextrose) Allergies/Adverse Reactions: codeine Allergy (Verified 04/06/22 19:41) hives Home Medications: Omeprazole 20 mg PO DAILY 04/06/22 [History] Glipizide 5 mg [Glucotrol 5 MG] 5 mg PO BID 11/12/22 [History] Quetiapine Fumarate [Seroquel] 50 mg PO DAILY PRN 11/12/22 [History] Hx Tetanus, Diphtheria Vaccination/Date Given: No Hx Influenza Vaccination/Date Given: No Hx Pneumococcal Vaccination/Date Given: No Travel Risk - International Travel Have you traveled outside of the country in past 3 weeks: No - Coronavirus Screening Are you exhibiting any of the following symptoms?: No Close contact with a COVID-19 positive Pt in past 14-21 Days: No - Vaccine Status Have you recieved a Covid-19 vaccination: No - Review of Systems Constitutional: No Symptoms, Lethargy Eyes: No Symptoms Ears, Nose, & Throat: No Symptoms Respiratory: No Symptoms Cardiac: No Symptoms Abdominal/Gastrointestinal: No Symptoms Genitourinary Symptoms: No Symptoms Musculoskeletal: No Symptoms Skin: No Symptoms Neurological: No Symptoms, Lethargy Psychological: No Symptoms Endocrine: No Symptoms Hematologic/Lymphatic: No Symptoms Immunological/Allergic: No Symptoms - Past Medical History Pertinent Past Medical History: Yes Endocrine Medical History: Diabetes Type II Psycho-Social History: Depression Other Medical History: Bipolar - Past Surgical History Past Surgical History: No - Social History Smoking Status: Current every day smoker How long have you smoked: 29 yrs Exposure to second hand smoke: Yes Drug Use: none Patient Lives Alone: Yes Significant Family History: no pertinent family hx - Nursing Vital Signs Nursing Vital Signs: Initial Vital Signs Temperature 98.1 F 11/12/22 11:28 Pulse Rate 71 11/12/22 11:28 Respiratory Rate 20 11/12/22 11:28 Blood Pressure 135/74 11/12/22 11:28 O2 Sat by Pulse Oximetry 99 11/12/22 11:28 Pain Scale Pain Intensity 0 WNL - Physical Exam General Appearance: no apparent distress Eye Exam: PERRL/EOMI, eyes nml inspection Ears, Nose, Throat Exam: normal ENT inspection, TMs normal, pharynx normal, moist mucous membranes Neck Exam: normal inspection, non-tender, supple, full range of motion, No meningismus, No mass, No Brudzinski, No Kernig's, No carotid bruit Respiratory Exam: normal breath sounds, lungs clear, airway intact, No respiratory distress Cardiovascular Exam: regular rate/rhythm, normal heart sounds, normal peripheral pulses, capillary refill <2 sec, No murmur Gastrointestinal/Abdomen Exam: soft, normal bowel sounds, No tenderness Back Exam: normal inspection, normal range of motion, No CVA tenderness, No vertebral tenderness Extremity Exam: normal inspection, normal range of motion Neurologic Exam: alert, oriented x 3, cooperative, sewer separation designer II-XII nml as tested, normal mood/affect, nml cerebellar function, nml station & gait, sensation nml, No motor deficits, No sensory deficit Skin Exam: normal color, warm, dry Lymphatic Exam: No adenopathy SpO2 Interpretation: normal SpO2: 99 O2 Delivery: Room Air - Course Nursing assessment & vital signs reviewed: Yes Ordered Tests: Active Orders 24 hr Category Date Time Status BMP Stat Lab 11/12/22 11:50 Completed POCT GLUCOSE Stat Lab 11/12/22 13:08 Completed POCT GLUCOSE Stat Lab 11/12/22 13:58 Completed POCT GLUCOSE Stat Lab 11/12/22 14:19 Completed Lab/Rad Data: Laboratory Result Diagrams 11/12/22 11:50 Laboratory Results 11/12/22 11/12/22 11/12/22 Range/Units 14:19 13:58 13:08 Sodium (137-145) mmol/L Potassium (3.5-5.1) mmol/L Chloride (98-107) mmol/L Carbon Dioxide (22-30) mmol/L Anion Gap (5-15) MEQ/L BUN (9-20) mg/dL Creatinine (0.66-1.25) mg/dL Estimated GFR ML/MIN Glucose (74-106) mg/dL POC Glucometer 102 105 90 (74 to 106) mg/dL Calcium (8.4-10.2) mg/dL 11/12/22 Range/Units 11:50 Sodium 140 (137-145) mmol/L Potassium 4.6 (3.5-5.1) mmol/L Chloride 104 (98-107) mmol/L Carbon Dioxide 31 H (22-30) mmol/L Anion Gap 10.2 (5-15) MEQ/L BUN 10 (9-20) mg/dL Creatinine 1.27 H (0.66-1.25) mg/dL Estimated GFR > 60.0 ML/MIN Glucose 116 H (74-106) mg/dL POC Glucometer (74 to 106) mg/dL Calcium 8.7 (8.4-10.2) mg/dL - Progress Progress: improved Progress Note: 11/12/22 15:13 Nursing note and vital signs reviewed Lab results reviewed and shared w pt PT ate lunch while in ER and glucose monitored No hypoglycemia in ER Pt instructed to hold Glipizide tonight and monitor glucose closely Pt has housing/food but no transportation 11/12/22 15:15 Counseled pt/family regarding: lab results, diagnosis, need for follow-up Medical Desision Making - Independent Historian Additional History obtained from: EMS - Social Determinants of Health Pt's dx & treatment plan are significantly limited by SDOH: Unemployed Limited access to: transportation - Diagnostic Testing Diagnostic test were ordered, analyzed, and reviewed by me: Yes - Risk of complications Low Risk: Low risk of morbidity from additional dx testing or treatment - Departure Departure Disposition: Home Clinical Impression: Hypoglycemia secondary to sulfonylurea Condition: Stable Critical Care Time: No Referrals: LYLE GUIDRY NP [Primary Care Provider] - Follow up/PCP as directed Instructions: Low Blood Sugar, Adult (DC) Additional Instructions: Do not take your Glipazide tonight Eat well today Watch your Glucose closely Follow up with your family MD in 1-2 days
[2022-11-12 12:07] LABS: ANION GAP 10.2 MEQ/L (5-15); BLOOD UREA NITROGEN 10 mg/dL (9-20); CHLORIDE 104 mmol/L (98-107); Calcium 8.7 mg/dL (8.4-10.2); Carbon Dioxide 31 mmol/L (22-30); Creatinine 1 1.27 mg/dL (0.66-1.25); EST GLOMERULAR FILTRATION RATE > 60.0 ML/MIN; Glucose 116 mg/dL (74-106); Potassium 4.6 mmol/L (3.5-5.1); SODIUM 140 mmol/L (137-145)
[2022-11-12 14:01] VITALS: PULSE 88
[2022-11-12 14:32] VITALS: BP 118/58
[2022-11-12 15:16] VITALS: O2SAT 99
== END 2022-11-12 14:50 | disposition home or self-care (01) ==
LOC: ED 11:28
DX: E11.649 Type 2 diabetes mellitus with hypoglycemia without coma (principal); T38.3X1A Poisoning by insulin and oral hypoglycemic [antidiabetic] drugs, accidental (unintentional), initial encounter; Z79.84 Long term (current) use of oral hypoglycemic drugs; Z79.899 Other long term (current) drug therapy; Z28.310 Unvaccinated for COVID-19; Z72.0 Tobacco use
CPT/HCPCS: 36000; 36415; 80048; 82947; 99283

== ENCOUNTER 2022-11-15 20:57 | Emergency (ER) | payer OTHER ==
[2022-11-15 21:13] LABS: Absolute Neutrophil Ct (ANC) 6.65 x10^3/uL (1.4-6.9); BASOPHIL % 0.5 % (0.0-0.4); Basophil (Absolute #) 0.06 x10^3/uL (0-0.4); Eosinophil % 1.6 % (0.00-5.0); Eosinophil (Absolute #) 0.21 x10^3/uL (0-0.5); Hematocrit 42.2 % (42-50); Hemoglobin 13.4 g/dL (12.5-18.0); IMMATURE GRAN # 0.03 x10^3u/L (0.00-0.03); IMMATURE GRAN % 0.2 % (0.00-0.4); Lymphocyte (Absolute #) 5.28 x10^3/uL (1.0-4.6); Lymphocytes % 41.2 % (24.0-44.0); Mean Cell Volume 83.6 fL (78-100); Mean Corpuscular Hemoglobin 26.5 pg (26-32); Mean Corpuscular Hgb Concent. 31.8 g/dL (32-36); Mean Platelet Volume 8.1 fL (7.5-11.0); Monocyte (Absolute #) 0.59 x10^3/uL (0.0-1.3); Monocytes % 4.6 % (0.0-12.0); Neutrophil % 51.9 % (36.0-66.0); Platelet Count 421 x10^3/uL (150-450); Red Blood Count 5.05 x10^6/uL (4.1-5.6); Red Cell Distribution Width 15.9 % (11.5-14.0); White Blood Count 12.8 x10^3/uL (4.0-10.5)
[2022-11-15 21:26] LABS: ACETAMINOPHEN < 10 ug/ml (10-30); ALBUMIN 4.3 g/dL (3.5-5.0); ALKALINE PHOSPHATASE 103 U/L (38-126); ANION GAP 12.5 MEQ/L (5-15); BLOOD UREA NITROGEN 14 mg/dL (9-20); CHLORIDE 104 mmol/L (98-107); Calcium 8.5 mg/dL (8.4-10.2); Carbon Dioxide 27 mmol/L (22-30); Creatinine 1 1.37 mg/dL (0.66-1.25); ETHYL ALCOHOL < 10 mg/dL (0-10); Glucose 124 mg/dL (74-106); Potassium 4.1 mmol/L (3.5-5.1); SALICYLATE < 1.0 mg/dL (2-20); SGOT/AST 25 U/L (17-59); SGPT/ALT 21 U/L (0-50); SODIUM 140 mmol/L (137-145)
--- NOTE | 2022-11-15 22:06 | ERPHSYRPT ---
- History of Present Illness Source: patient, other ([facility]) Exam Limitations: no limitations Patient Subjective Stated Complaint: medical clearance requested per [facility] before admission tonight, pt is admitting himself. Triage Nursing Assessment: pt ambulated into ER without diff. Pt brought in by his case technician from [facility], but she left to go to the office to get some paperwork. Pt is alert and oriented x3, pleasant and cooperative. Pt is willingly admitting himself to [facility] due to a recent increase of his anxiety, stating "my diabetes has been like a roller coaster lately and has me stressed out". Pt also states he has stressors with his SSI check, etc. Pt denies any thoughts or ideations of self harm and denies any thoughts of wanting to hurt anyone else as well. Physician History: 42 yo WM w depression/anxiety sent to the ER for exam before admittance to the [facility]. Pt denies suicidal/homicidal ideation and is quite jovial. Timing/Duration: today Severity of Symptoms-Max: moderate Severity of Symptoms-Current: mild Context related to: living circumstances Associated Symptoms: anxiety, depressed Previous symptoms: same symptoms as today Allergies/Adverse Reactions: codeine Allergy (Verified 11/15/22 21:19) hives Home Medications: Omeprazole 20 mg PO DAILY 04/06/22 [History] Glipizide 5 mg [Glucotrol 5 MG] 5 mg PO BID 11/12/22 [History] Quetiapine Fumarate [Seroquel] 50 mg PO DAILY PRN 11/12/22 [History] Cetirizine HCl [All Day Allergy Relief] 10 mg PO DAILY 11/15/22 [History] Meclizine HCl 25 mg [Antivert 25 mg] 25 mg PO TID PRN PRN 11/15/22 [History] Hx Tetanus, Diphtheria Vaccination/Date Given: Yes Hx Influenza Vaccination/Date Given: No Hx Pneumococcal Vaccination/Date Given: No Travel Risk - International Travel Have you traveled outside of the country in past 3 weeks: No - Coronavirus Screening Are you exhibiting any of the following symptoms?: No Close contact with a COVID-19 positive Pt in past 14-21 Days: No - Vaccine Status Have you recieved a Covid-19 vaccination: No - Past Medical History Pertinent Past Medical History: Yes Neurological History: No Pertinent History ENT History: No Pertinent History Cardiac History: High Cholesterol Respiratory History: Bronchitis, Pneumonia Endocrine Medical History: Diabetes Type II Musculoskeletal History: Fractures GI Medical History: GERD History: No Pertinent History Psycho-Social History: Anxiety, Bipolar, Depression Male Reproductive Disorders: No Pertinent History Other Medical History: Bipolar - Past Surgical History Past Surgical History: No - Social History Smoking Status: Current every day smoker How long have you smoked: 27 yrs Exposure to second hand smoke: Yes Drug Use: none Patient Lives Alone: Yes Significant Family History: no pertinent family hx - Review of Systems Constitutional: No Symptoms Eyes: No Symptoms Ears, Nose, & Throat: No Symptoms Respiratory: No Symptoms Cardiac: No Symptoms Abdominal/Gastrointestinal: No Symptoms Genitourinary Symptoms: No Symptoms Musculoskeletal: No Symptoms Skin: No Symptoms Neurological: No Symptoms Endocrine: No Symptoms Hematologic/Lymphatic: No Symptoms Immunological/Allergic: No Symptoms - Nursing Vital Signs Nursing Vital Signs: Initial Vital Signs Temperature 96.5 F 11/15/22 21:05 Pulse Rate 104 H 11/15/22 21:05 Respiratory Rate 24 11/15/22 21:05 Blood Pressure 107/70 11/15/22 21:05 O2 Sat by Pulse Oximetry 100 11/15/22 21:05 Pain Scale Pain Intensity 0 Mildly tachy - Physical Exam General Appearance: no apparent distress Eyes, Ears, Nose, Throat Exam: normal ENT inspection, TMs normal, pharynx normal, moist mucous membranes Neck Exam: normal inspection, non-tender, supple, full range of motion, No Brudzinski, No Kernig's, No meningismus, No carotid bruit Respiratory Exam: normal breath sounds, lungs clear, airway intact, No respiratory distress Cardiovascular Exam: normal heart sounds, tachycardia (Mildly), capillary refill <2 sec, No murmur Gastrointestinal/Abdominal Exam: soft, normal bowel sounds, No tenderness Extremities Exam: normal inspection, normal range of motion, No evidence of injury Current Suicidality: No denies suicide plan, No has suicide plan Neurological Exam: alert, normal mood/affect, calm, 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, oriented x 3 Appearance: appropriate appearance, appropriate insight, neat, no memory impairment Behavior/Eye Contact/Speech: alert & cooperative, good eye contact, normal speech Thoughts/Hallucinations: normal thought pattern, no apparent hallucination, No delusions, No flight of ideas Skin Exam: normal color, warm, dry SpO2 Interpretation: normal SpO2: 100 O2 Delivery: Room Air Ordered Tests: Active Orders 24 hr Category Date Time Status ACETAMINOPHEN Stat Lab 11/15/22 21:10 Completed CBC W DIFF Stat Lab 11/15/22 21:10 Completed CMP Stat Lab 11/15/22 21:10 Completed ETHYL ALCOHOL Stat Lab 11/15/22 21:10 Completed SALICYLATE Stat Lab 11/15/22 21:10 Completed UA W/RFX UR CULTURE Stat Lab 11/15/22 22:33 Completed Urine Triage Profile Stat Lab 11/15/22 22:33 Completed Lab/Rad Data: Laboratory Result Diagrams 11/15/22 21:10 11/15/22 21:10 Laboratory Results 11/15/22 11/15/22 11/15/22 Range/Units 22:33 22:33 21:10 WBC (4.0-10.5) x10^3/uL RBC (4.1-5.6) x10^6/uL Hgb (12.5-18.0) g/dL Hct (42-50) % MCV (78-100) fL MCH (26-32) pg MCHC (32-36) g/dL RDW (11.5-14.0) % Plt Count (150-450) x10^3/uL MPV (7.5-11.0) fL Gran % (36.0-66.0) % Immature Gran % (Auto) (0.00-0.4) % Nucleat RBC Rel Count (0.00-0.1) % Eos # (Auto) (0-0.5) x10^3/uL Immature Gran # (Auto) (0.00-0.03) x10^3u/L Absolute Lymphs (auto) (1.0-4.6) x10^3/uL Absolute Monos (auto) (0.0-1.3) x10^3/uL Absolute Nucleated RBC (0.00-0.01) x10^3u/L Lymphocytes % (24.0-44.0) % Monocytes % (0.0-12.0) % Eosinophils % (0.00-5.0) % Basophils % (0.0-0.4) % Absolute Granulocytes (1.4-6.9) x10^3/uL Basophils # (0-0.4) x10^3/uL Sodium 140 (137-145) mmol/L Potassium 4.1 (3.5-5.1) mmol/L Chloride 104 (98-107) mmol/L Carbon Dioxide 27 (22-30) mmol/L Anion Gap 12.5 (5-15) MEQ/L BUN 14 (9-20) mg/dL Creatinine 1.37 H (0.66-1.25) mg/dL Estimated GFR 60.0 ML/MIN Glucose 124 H (74-106) mg/dL Calcium 8.5 (8.4-10.2) mg/dL Total Bilirubin 0.40 (0.2-1.3) mg/dL AST 25 (17-59) U/L ALT 21 (0-50) U/L Alkaline Phosphatase 103 (38-126) U/L Serum Total Protein 8.0 (6.3-8.2) g/dL Albumin 4.3 (3.5-5.0) g/dL Urine Color Yellow (Yellow) Urine Appearance Clear (Clear) Urine pH 6.5 (4.6-8.0) Ur Specific [place] 1.010 (1.005-1.030) Urine Protein Negative (Negative) Urine Glucose (UA) Negative (Negative) mg/dL Urine Ketones Negative (Negative) Urine Blood Negative (Negative) Urine Nitrite Negative (Negative) Urine Bilirubin Negative (Negative) Urine Urobilinogen 1.0 A (0.2) mg/dL Ur Leukocyte Esterase Trace A (Negative) U Hyaline Cast (Auto) 6-10 A (0-2) /LPF Urine Microscopic RBC 0-2 (0-5) /HPF Urine Microscopic WBC 0-2 (0-5) /HPF Ur Epithelial Cells None Seen (None Seen) /HPF Urine Bacteria None Seen (None Seen) /HPF Urine Culture Reflexed NO (NO) Salicylates < 1.0 L (2-20) mg/dL Urine Opiates Level NEGATIVE (NEGATIVE) Ur Methadone NEGATIVE (NEGATIVE) Acetaminophen < 10 L (10-30) ug/ml Urine Barbiturates NEGATIVE (NEGATIVE) Ur Phencyclidine (PCP) NEGATIVE (NEGATIVE) Urine Amphetamine NEGATIVE (NEGATIVE) U Benzodiazepine Level NEGATIVE (NEGATIVE) Urine Cocaine NEGATIVE (NEGATIVE) Urine Marijuana (THC) NEGATIVE (NEGATIVE) Ethyl Alcohol < 10 (0-10) mg/dL 11/15/22 Range/Units 21:10 WBC 12.8 H (4.0-10.5) x10^3/uL RBC 5.05 (4.1-5.6) x10^6/uL Hgb 13.4 (12.5-18.0) g/dL Hct 42.2 (42-50) % MCV 83.6 (78-100) fL MCH 26.5 (26-32) pg MCHC 31.8 L (32-36) g/dL RDW 15.9 H (11.5-14.0) % Plt Count 421 (150-450) x10^3/uL MPV 8.1 (7.5-11.0) fL Gran % 51.9 (36.0-66.0) % Immature Gran % (Auto) 0.2 (0.00-0.4) % Nucleat RBC Rel Count 0.0 (0.00-0.1) % Eos # (Auto) 0.21 (0-0.5) x10^3/uL Immature Gran # (Auto) 0.03 (0.00-0.03) x10^3u/L Absolute Lymphs (auto) 5.28 H (1.0-4.6) x10^3/uL Absolute Monos (auto) 0.59 (0.0-1.3) x10^3/uL Absolute Nucleated RBC 0.00 (0.00-0.01) x10^3u/L Lymphocytes % 41.2 (24.0-44.0) % Monocytes % 4.6 (0.0-12.0) % Eosinophils % 1.6 (0.00-5.0) % Basophils % 0.5 (0.0-0.4) % Absolute Granulocytes 6.65 (1.4-6.9) x10^3/uL Basophils # 0.06 (0-0.4) x10^3/uL Sodium (137-145) mmol/L Potassium (3.5-5.1) mmol/L Chloride (98-107) mmol/L Carbon Dioxide (22-30) mmol/L Anion Gap (5-15) MEQ/L BUN (9-20) mg/dL Creatinine (0.66-1.25) mg/dL Estimated GFR ML/MIN Glucose (74-106) mg/dL Calcium (8.4-10.2) mg/dL Total Bilirubin (0.2-1.3) mg/dL AST (17-59) U/L ALT (0-50) U/L Alkaline Phosphatase (38-126) U/L Serum Total Protein (6.3-8.2) g/dL Albumin (3.5-5.0) g/dL Urine Color (Yellow) Urine Appearance (Clear) Urine pH (4.6-8.0) Ur Specific [place] (1.005-1.030) Urine Protein (Negative) Urine Glucose (UA) (Negative) mg/dL Urine Ketones (Negative) Urine Blood (Negative) Urine Nitrite (Negative) Urine Bilirubin (Negative) Urine Urobilinogen (0.2) mg/dL Ur Leukocyte Esterase (Negative) U Hyaline Cast (Auto) (0-2) /LPF Urine Microscopic RBC (0-5) /HPF Urine Microscopic WBC (0-5) /HPF Ur Epithelial Cells (None Seen) /HPF Urine Bacteria (None Seen) /HPF Urine Culture Reflexed (NO) Salicylates (2-20) mg/dL Urine Opiates Level (NEGATIVE) Ur Methadone (NEGATIVE) Acetaminophen (10-30) ug/ml Urine Barbiturates (NEGATIVE) Ur Phencyclidine (PCP) (NEGATIVE) Urine Amphetamine (NEGATIVE) U Benzodiazepine Level (NEGATIVE) Urine Cocaine (NEGATIVE) Urine Marijuana (THC) (NEGATIVE) Ethyl Alcohol (0-10) mg/dL - Progress Progress Note: 11/15/22 22:56 Nursing note and vital signs reviewed No food or housing insecurities noted All labs reviewed and shared w pt Pt was a voluntary admit to the [facility] but decided to go home. He is not suicidal or homicidal. Counseled pt/family regarding: lab results, diagnosis, need for follow-up Medical Desision Making - Diagnostic Testing Diagnostic test were ordered, analyzed, and reviewed by me: Yes - Risk of complications Low Risk: Low risk of morbidity from additional dx testing or treatment - Departure Departure Disposition: Home Clinical Impression: Anxiety Condition: Stable Critical Care Time: No Referrals: LYLE GUIDRY NP [Primary Care Provider] - Follow up/PCP as directed Instructions: Anxiety, Adult (DC) Additional Instructions: Follow up with the [facility] Return to ER as needed
[2022-11-15 23:03] VITALS: BP 141/84; PULSE 94
[2022-11-15 23:11] LABS: Appearance Clear (Clear); Bacteria None Seen /HPF (None Seen); Bilirubin Negative (Negative); Blood Negative (Negative); Epithelial Cells None Seen /HPF (None Seen); Glucose, Urine Negative (Negative); Ketones Negative (Negative); Leukocyte Esterase Trace (Negative); Nitrite Negative (Negative); Ph 6.5 (4.6-8.0); Protein,Urine Dip Negative (Negative); RBC 0-2 /HPF (0-5); WBC 0-2 /HPF (0-5)
[2022-11-15 23:12] LABS: ADD URINE CULTURE? NO (NO)
[2022-11-15 23:16] LABS: Amphetamine,Urine NEGATIVE (NEGATIVE); Barbiturate,Urine NEGATIVE (NEGATIVE); Benzodiazepine,Urine NEGATIVE (NEGATIVE); Cocaine,Urine NEGATIVE (NEGATIVE); Methadone,Urine NEGATIVE (NEGATIVE); Opiate,Urine NEGATIVE (NEGATIVE); PCP,Urine NEGATIVE (NEGATIVE); THC,Urine NEGATIVE (NEGATIVE)
[2022-11-16 02:41] VITALS: O2SAT 100
== END 2022-11-15 23:05 | disposition home or self-care (01) ==
LOC: ED 20:57
DX: F41.9 Anxiety disorder, unspecified (principal); Z59.9 Problem related to housing and economic circumstances, unspecified; E78.5 Hyperlipidemia, unspecified; E11.9 Type 2 diabetes mellitus without complications; Z79.84 Long term (current) use of oral hypoglycemic drugs; Z79.899 Other long term (current) drug therapy; Z28.310 Unvaccinated for COVID-19; Z72.0 Tobacco use
CPT/HCPCS: 36415; 80053; 80143; 80179; 80307; 81001; 82077; 85025; 99282